=== PATIENT | male | born 1985 | race Caucasian/White ===

== ENCOUNTER 2022-08-22 08:14 | Day surgery (SDC) | payer OTHER, SELFPAY ==
[2022-08-15 15:24] VITALS: BMI 22.4
[2022-08-22] VITALS (10 sets, daily range): BP systolic 95–129; BP diastolic 64–80; PULSE 71–95; RESP 12–22; TEMP 36.3–36.9; O2SAT 98–100; BMI 22.4
--- NOTE | 2022-08-22 | PATH_ITS ---
[facility] Accession Number: [id number] . 01 Material submitted: . neck - POSTERIOR NECK MASS . 01 Diagnosis: Posterior Neck, Excision: Mature fibroadipose tissue, consistent with lipoma. MRV 08/24/2022 1329 Local . 01 Electronically signed: . Juan Bateman MD, Dermatopathologist NPI- [id number] . 01 Gross description: . The specimen is received in formalin labeled with the patient's name, , and posterior neck mass, and consists of a ferro to yellow lobulated soft tissue fragment measuring 7.0 x 5.0 x 2.9 cm. The external surface is inked blue. Sectioning reveals a pale yellow homogeneous unremarkable cut surface. Computational Scientist sections are submitted in cassettes A1-A3. ([id number]) /MRV 08/23/2022 1754 Local . 01 Pathologist provided ICD-10: D17.9 . 01 CPT . 603465 Specimen Comment: A courtesy copy of this report has been sent to [phone] Performed at: 01 [facility] [address] [place] [address], [place], [place] [id number] MD Rg Tovar MD Phone: [phone]
--- NOTE | 2022-08-22 08:55 | PM.HP.1 ---
History of Present Illness History of Present Illness Date Patient Seen: 08/22/22 Time Patient Seen: 08:56 Chief complaint: NEC Narrative: Bart is here for his excisional biopsy of left posterior neck mass. He did take something for anxiety before coming in. See the office note from June for details. Patient History Medical History (Updated 08/16/22 @ 12:19 by Sharon Sharp RN) ADHD Anxiety Headache Mitral valve prolapse Pectus excavatum Surgical History (Updated 08/16/22 @ 12:20 by Sharon Sharp RN) History of placement of ear tubes (1993) History of surgery (2001) [place] teeth extracted Family & Social History Tobacco & Substance use: Smoking Status Former smoker alcohol intake former Substance Use Type marijuana Meds Home Medications and Allergies Home Medications Medication Instructions Recorded Confirmed Type alprazolam 2 mg tablet 2 mg PO BID PRN Anxiety 06/28/22 08/22/22 History cholecalciferol (vitamin D3) 125 125 mcg PO DAILY 06/28/22 08/16/22 History mcg (5,000 unit) capsule clonidine HCl 0.2 mg tablet 0.2 mg PO BEDTIME 06/28/22 08/16/22 History gabapentin 300 mg capsule 300 mg PO DAILY 06/28/22 08/16/22 History kava (piper methysticum) 500 mg 500 mg PO BEDTIME PRN Sleep 06/28/22 08/16/22 History capsule (Kava Kava) lamotrigine 200 mg tablet 200 mg PO DAILY 06/28/22 08/22/22 History lorazepam 2 mg tablet 2 mg PO DAILY PRN Anxiety 06/28/22 08/16/22 History dextroamphetamine-amphetamine 5 mg 15 mg PO DAILY 08/22/22 08/22/22 History tablet propranolol 20 mg tablet 10 mg PO DAILY PRN Anxiety 08/22/22 08/22/22 History Allergies Allergy/AdvReac Type Severity Reaction Status Date / Time No Known Drug Allergies Allergy Unverified 06/28/22 11:30 Exam Narrative Exam Narrative: Large left posterior neck mass Const General: healthy appearing Assessment & Plan Assessment and plan (1) Lipoma of neck: Status: Acute Plan We will proceed with excisional biopsy of left posterior neck mass. He understands the risks and wishes to proceed. Time Spent With Patient Critical Care time: I spent a total of [] minutes of critical care time on this patient's care today; this time is exclusive of procedural time.
--- NOTE | 2022-08-22 09:25 | SUR.PREOP ---
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
--- NOTE | 2022-08-22 09:54 | SUR.OPER ---
Lateral on a massey bag, head on pillow, gel axillary roll in place, bottom leg bent with gel pad under knee to foot, upper leg straight and supported with pillows, both legs taped into position. Upper arm supported by pillows and secured over torso, covered with towel and positioned with tape to increase tension at surgery site. Lower arm on padded arm board and secure Safety belt at torso, tape over blanket lower legs.
[2022-08-22] MEDS: BUPIVACAINE 0.5% W/ EPI (PF) 30 ML VIAL INJ (10:11)
--- NOTE | 2022-08-22 11:09 | PM.OP.1 ---
Operative Date/Time/Diagnoses Date of procedure: 08/22/22 Time of procedure: 11:09 Pre-op diagnosis: Left posterior neck mass Post-op diagnosis: same Procedure & Clinicians Procedure: Excisional biopsy of left posterior neck mass Same procedure as scheduled: Yes Surgeon: Wallace Lin Operative Notes Procedure in detail: The patient is a 37-year-old man with a mass of his left posterior neck. He was consented for excisional biopsy. The patient did not require preoperative antibiotics. The patient was brought into the operating room and general anesthesia was induced via LMA. He was then positioned in the right lateral decubitus position with his left side up. A beanbag was used to secure him along with straps and tapes. The left neck mass was prepped and draped in the usual fashion and a time-out was performed. We created a 12 cm incision over the mass in an axial direction. The mass appeared lipomatous in nature. We dissected the mass off of the dermis along its anterior aspect and off the trapezius muscle posteriorly. We did not see the left spinal accessory nerve. We did not violate the fascia over the trapezius muscle. The mass was removed and was approximately 12 cm x 10 cm x 8 cm and appeared to be a lipoma. We achieved hemostasis in the wound bed with judicious use of cautery. We injected additional local into the muscle fascia and dermis. The incision was then closed in layers using multiple interrupted 3-0 Vicryl dermal sutures followed by a running 4-0 Monocryl subcuticular closure. Dressings were applied. EBL: 10 mL Specimen: Left neck mass Post-operative Condition: stable Disposition: PACU
== END 2022-08-22 12:09 | disposition home or self-care (01) ==
PROVIDERS: PCP Physician Assistant Medical; Referring Provider Surgery; Visit Provider Surgery
PROC: (CPT 21552; principal; 2022-08-22 09:45)
DX: D17.0 Benign lipomatous neoplasm of skin and subcutaneous tissue of head, face and neck (principal); F41.9 Anxiety disorder, unspecified
CPT/HCPCS: 21552; J1100; J2250; J2405; J2704; J3010